=== PATIENT | female | born 1965 | race Caucasian/White ===

== ENCOUNTER 2016-06-21 06:26 | Day surgery (SDC) | payer BC ==
[~2016-06-21 06:26] MED LIST: Lactated Ringers 1,000 ML IV SCH; Lidocaine 1%/Sod Bicarbonate in NS 8.4% 1 ML Syringe IV PRN; Sodium Chloride 0.9% 10 ML Syringe FLUSH PRN
[2016-06-21] MEDS ORDERED: Propofol 200 MG/20 ML SDV ONE (07:10)
[2016-06-21] MEDS ORDERED: Midazolam 1 MG/ML 2 ML SDV ONE (07:10)
--- NOTE | 2016-06-21 07:10 | PCM.PREANE ---
Preanesthetic Assessment - Anesthesia/Transfusion/Family Hx Anesthesia History: Prior Anesthesia Without Reaction Type of Anesthesia Reaction: Unknown Family History of Anesthesia Reaction: No Transfusion History: Unknown Type of Transfusion Reactions: Reports: Unknown - Review of Systems General: No Symptoms Pulmonary: Shortness of Breath, Wheezing (with activity), Other (smoker 1/2ppd) Cardiovascular: No Symptoms Gastrointestinal: Other (heartburn, food related) Neurological: No Symptoms Other: Reports: Diabetes (type 2, recently diagnosed) - Physical Assessment NPO Status Date: 06/20/16 NPO Status Time: 20:30 Pulse: 87 O2 Sat by Pulse Oximetry: 95 Respiratory Rate: 16 Blood Pressure: 124/57 Temperature: 36.2 C Height: 1.68 m Weight: 125.645 kg ASA Class: 2 Mental Status: Alert & Oriented x3 Dentition: Reports: Normal Dentition (2) Thyro-Mental Finger Breadths: 2 Mouth Opening Finger Breadths: 2 ROM/Head Extension: Full Lungs: Clear to auscultation, Normal respiratory effort Cardiovascular: Regular Rate, Regular Rhythm - Allergies Allergies/Adverse Reactions: Allergies Allergy/AdvReac Type Severity Reaction Status Date / Time chocolate flavor Allergy Hives Verified 09/29/15 17:45 - Blood Blood Available: No Product(s) Available: None - Anesthesia Plan Pre-Op Medication Ordered: None - Acknowledgements Anesthesia Type Planned: MAC Pt an Appropriate Candidate for the Planned Anesthesia: Yes Alternatives and Risks of Anesthesia Discussed w Pt/Guardian: Yes Pt/Guardian Understands and Agrees with Anesthesia Plan: Yes PreAnesthesia Questionnaire Cardiovascular History: Reports: Hypertension Respiratory History: Reports: Bronchitis, recurrent Other Respiratory History: pt is a smoker Psychiatric History: Reports: Depression - Past Surgical History HEENT Surgical History: Reports: Oral surgery - SUBSTANCE USE Smoking Status *Q: Current Every Day Smoker Tobacco Use Within Last Twelve Months: Cigarettes Recreational Drug Use History: No - HOME MEDS Home Medications: Home Meds Hydroclorathiazide 25 mg PO DAILY 09/29/15 [History] Lisinopril 40 mg PO BEDTIME 09/29/15 [History] Omeprazole 20 mg PO BIDAC #28 cap.cr 09/29/15 [Rx] Spironolactone [Aldactone] 50 mg PO DAILY 09/29/15 [History] Sucralfate [Carafate] 1 gm PO Q6H PRN #120 ml 09/29/15 [Rx] - CURRENT (IN HOUSE) MEDS Current Meds: Current Medications Lactated Ringer's (Ringers, Lactated) 1,000 mls @ 125 mls/hr IV ASDIRECTED PINEDA Stop: 06/21/16 23:00 Lidocaine/Sodium Bicarbonate (Buffered Lidocaine 1% In Ns 8.4%) 0.25 ml IV ONETIME PRN PRN Reason: Prior to IV Start Stop: 06/21/16 18:00 Sodium Chloride (Saline Flush) 10 ml FLUSH ASDIRECTED PRN PRN Reason: Keep Vein Open Stop: 06/21/16 18:00 Discontinued Medications Midazolam HCl (Versed 1 Mg/Ml) Confirm Administered Dose 2 mg .ROUTE .STK-MED ONE Stop: 06/21/16 07:11 Propofol (Diprivan 20 Ml) Confirm Administered Dose 200 mg .ROUTE .STK-MED ONE Stop: 06/21/16 07:11
--- NOTE | 2016-06-21 08:05 | PCM.OPNOTE ---
- General Post-Op/Procedure Note Date of Surgery/Procedure: 06/21/16 Operative Procedure(s): Colonoscopy with cold forceps biopsy Findings: 2 mm transverse colon polyp Pre Op Diagnosis: Screening for colon cancer Post-Op Diagnosis: 2 mm transverse colon polyp Anesthesia Technique: MAC Primary Surgeon: Torres Jimenez EBL in mLs: 5 Complications: none Condition: Good Free Text/Narrative:: After patient gave verbal and written consent, timeout was performed. She was give iv sedation which she tolerate well for MAC. The olympus colonoscope was inserted per rectum and advanced to the cecum without difficulty. The ileocecal valve and appendiceal orfice were imaged documenting cecal intubation. The colonoscope was slowly withdrawn. The prep was excellent. Views were excellent. A 2 mm transverse polyp was noted and removed with cold forceps biopsy. Hemostasis was obtained. The scope was retroflexed in the rectum and the details are above.
[2016-06-21 08:28] VITALS: BP 92/55
--- NOTE | 2016-06-21 09:33 | PCM48HPAN ---
Post Anesthesia Note - EVALUATION WITHIN 48HRS OF ANESTHETIC Vital Signs in Normal Range: Yes Patient Participated in Evaluation: Yes Respiratory Function Stable: Yes Airway Patent: Yes Cardiovascular Function Stable: Yes Hydration Status Stable: Yes Pain Control Satisfactory: Yes Nausea and Vomiting Control Satisfactory: Yes Mental Status Recovered: Yes
== END 2016-06-21 08:33 | disposition home or self-care (01) ==
LOC: JD.SDS 06:26
PROVIDERS: ATTEND Family Medicine
PROC: 0DBL8ZZ Excision of Transverse Colon, Via Natural or Artificial Opening Endoscopic (ICD-10-PCS; principal; 2016-06-21)
DX: Z12.11 Encounter for screening for malignant neoplasm of colon (principal); D12.3 Benign neoplasm of transverse colon; I10 Essential (primary) hypertension; F17.210 Nicotine dependence, cigarettes, uncomplicated; J40 Bronchitis, not specified as acute or chronic; F32.9 Major depressive disorder, single episode, unspecified; Z91.018 Allergy to other foods; Z79.899 Other long term (current) drug therapy; Z98.890 Other specified postprocedural states
CPT/HCPCS: 45380; 88305; J2250; J7120; J2704